=== PATIENT | male | born 1945 | race Caucasian/White ===

== ENCOUNTER → 2023-09-09 16:35 | Outpatient (REF) | payer MEDICARE, OTHER, SELFPAY | LOC: MRI 3T 16:35 | PROVIDERS: ATTENDING PHYSICIAN Internal Medicine Endocrinology, Diabetes & Metabolism; FAMILY PHYSICIAN Physician Assistant Medical | DX: E22.1 Hyperprolactinemia (principal) | CPT/HCPCS: 70553; A9575 ==

== ENCOUNTER → 2023-09-22 06:43 | Outpatient (REF) | payer MEDICARE, OTHER, SELFPAY ==
[2023-09-22 07:40] LABS: % Basophils 0.8 % (0-2); % Eosinophils 2.7 % (0-6); % Immature Granulocytes 0.2 % (0-0.5); % Lymphocytes 25.2 % (20.5-51.1); % Monocytes 12.5 % (1.7-9.3); % Neutrophils 58.6 % (42.2-75.2); Absolute Eosinophils 0.1 10^3/uL (0-0.7); Absolute Lymphocytes 1.3 10^3/uL (1.2-3.4); Absolute Monocytes 0.7 10^3/uL (0.1-0.6); Absolute Neutrophils 3.1 10^3/uL (1.4-6.5); Hematocrit 39.7 % (39.0-52.0); Hemoglobin 14.1 g/dL (13.0-18.0); Mean Corp Hgb Conc. 35.5 g/dL (33.0-37.0); Mean Corpuscular Hgb 32.6 pg (27.0-31.0); Mean Corpuscular Volume 91.7 fL (80.0-94.0); Mean Platelet Volume 9.7 fL (7.4-10.4); Nucleated Red Blood Cells % 0 % (-); Platelet Count 246 10^3/uL (130-400); Red Blood Cell Count 4.33 10^6/uL (4.70-6.10); Red Cell Dist. Width 12.1 % (11.5-14.5); White Blood Cell Count 5.3 10^3/uL (4.8-10.8)
== END ==
LOC: REG 06:43
PROVIDERS: ATTENDING PHYSICIAN Internal Medicine Hematology & Oncology; FAMILY PHYSICIAN Physician Assistant Medical
DX: D72.810 Lymphocytopenia (principal)
CPT/HCPCS: 36415; 85025

== ENCOUNTER → 2023-10-14 10:28 | Outpatient (REF) | payer MEDICARE, OTHER, SELFPAY | LOC: RAD 10:28 | PROVIDERS: ATTENDING PHYSICIAN Physician Assistant | DX: M79.604 Pain in right leg (principal) | CPT/HCPCS: 93971 ==

== ENCOUNTER 2023-10-20 19:50 | Inpatient (IN) | payer MEDICARE, OTHER, SELFPAY ==
[2023-10-20 14:42] VITALS: BP 123/79
--- NOTE | 2023-10-20 15:04 | ED.PDOC.TRB ---
ED Provider Triage
-
A medical screening examination has been initiated by a qualified medical provider. Based on the assessment performed at this time, it has been determined that an emergent medical condition may exist and the patient has been informed that further
medical evaluation and possible additional diagnostic testing may be needed.
HPI: This is a medical evaluation conducted in person to initiate diagnostic evaluation and provide initial therapeutics. Please see further documentation by the treating clinician.
GENERAL: Alert , in no apparent distress
EYE: No visual abnormalities.
NECK: Trachea midline
ENT: No visible abnormalities.
LUNGS: No acute respiratory distress
NEUROLOGICAL: Alert and oriented
SKIN: Patient has a very large pointing abscess measuring approximately 8 x 8 cm to the right medial lower leg with a very extensive cellulitis streaking up into his thigh posteriorly, there is also diffuse edema of the right lower extremity
MUSCULOSKELETAL: Moving extremities normally
PSYCH: Normal and appropriate interaction.
77-year-old male who reports only medical history is blood pressure and no history of diabetes presents with a very large abscess/cellulitis to his right lower extremity despite oral antibiotics for the last week. He says that it initially he was
cutting down wood and the wood bruised his lower extremity but did not break the skin and he had a hematoma there were slight bruise which got much worse. He has not had any fevers or chills. He has been on Keflex and the pain got better but he
has extensive worsening of his redness and the patient was sent here after being evaluated by his family doctor for possible admission. On exam patient has significant cellulitis and an abscess
He is not having pain out of proportion but given the worsening collection there I felt like it was beneficial to obtain a CT with IV contrast. He will likely need admission.
[2023-10-20 15:15] LABS: % Basophils 0.7 % (0-2); % Lymphocytes 13.7 % (20.5-51.1); % Monocytes 10.8 % (1.7-9.3); % Neutrophils 70.8 % (42.2-75.2); Absolute Basophils 0.1 10^3/uL (0-0.2); Absolute Eosinophils 0.2 10^3/uL (0-0.7); Absolute Immature Granulocytes 0.2 10^3/uL (0-0.05); Absolute Lymphocytes 1.5 10^3/uL (1.2-3.4); Absolute Monocytes 1.2 10^3/uL (0.1-0.6); Absolute Neutrophils 7.7 10^3/uL (1.4-6.5); Hematocrit 37.4 % (39.0-52.0); Hemoglobin 13.4 g/dL (13.0-18.0); Mean Corp Hgb Conc. 35.8 g/dL (33.0-37.0); Mean Corpuscular Hgb 31.9 pg (27.0-31.0); Mean Platelet Volume 8.7 fL (7.4-10.4); Nucleated Red Blood Cells % 0 % (-); Platelet Count 411 10^3/uL (130-400); Red Cell Dist. Width 12.3 % (11.5-14.5); White Blood Cell Count 10.9 10^3/uL (4.8-10.8)
[2023-10-20 15:23] LABS: Lactic Acid 1.5 mmol/L (0.7-2.0)
[2023-10-20 15:24] LABS: ALT (SGPT) 25 U/L (0-50); AST (SGOT) 28 U/L (17-59); Albumin 3.9 g/dl (3.5-5.0); Alkaline Phosphatase 81 U/L (38-126); Blood Urea Nitrogen 19 mg/dl (9-20); Calcium 9.3 mg/dl (8.4-10.2); Carbon Dioxide 25 mmol/L (22-30); Chloride 102 mmol/L (98-107); Glucose 101 mg/dl (70-99); Potassium 4.4 mmol/L (3.5-5.1); Sodium 138 mmol/L (135-145); Total Bilirubin 0.5 mg/dl (0.2-1.3); Total Protein 6.7 g/dl (6.3-8.2); eGFR > 60.00
[2023-10-20 17:41] VITALS: BMI 30.6
--- NOTE | 2023-10-20 17:47 | ED.GENMED ---
History of Present Illness
<TOBY Fajardo - Last Filed: 10/20/23 20:18>
General
Chief Complaint: Skin Problem
Source: patient
Exam Limitations: none
Time Seen by Provider: 10/20/23 17:29
Nursing documentation reviewed up to this point in time: agreed with
History of Present Illness
History of Present Illness:
77 yr old male presents to the ER for evaluation patient is a 77-year-old male who started with a wound to his right lower leg a week ago which looked infected. He completed 1 week of Keflex 500 mg every 6 hours with worsening of symptoms now his
leg is swollen increased redness and has a thickened blister did drain at one point not draining now. He denies any fevers he denies any pain. He does report he had an outpatient ultrasound which was negative for DVT. He denies any fever chills.
Past History
<TOBY Fajardo - Last Filed: 10/20/23 20:18>
Past History
ED Past Medical History: HTN and Other (vertigo)
ED Past Surgical History: Cholecystectomy, Orthopedic and Other (hernia)
Social History
Tobacco: Non-smoker
Alcohol: None
Personal:
Living: with family
Employment: Employed
Review of Systems
<TOBY Fajardo - Last Filed: 10/20/23 20:18>
Review of Systems
Allergies reviewed?: Yes
Other source history: family
All Other Systems: ROS reviewed and negative except as documented in HPI and ROS
Constitutional: Reports no symptoms; Denies fever, fatigue or chills
EENT: Reports no symptoms
Respiratory: Reports no symptoms
Cardiac: Reports no symptoms
ABD/GI: Reports no symptoms
Musculoskeletal: Reports other (right leg swelling redness blister )
Skin: Reports other (See above)
Neurological: Reports no symptoms
Psychiatric: Reports no symptoms
Phy Exam
<TOBY Fajardo - Last Filed: 10/20/23 20:18>
General Physical Exam
General Presentation: no apparent distress
Cardiovascular Exam
Cardiovascular Exam: regular rate/rhythm, no murmur and normal peripheral pulses
Pulmonary Exam
Pulmonary Exam: lungs clear and no respiratory distress
Neurological Exam
Neurological Exam: alert and oriented x3
Musculoskeletal Exam
Musculoskeletal Exam: other (Right lower leg with swelling ; circumferential erythema thickened appearing blister + pulses )
Skin Exam
Skin Exam: normal color and warm/dry
Psychiatric Exam
Psychiatric Exam: normal mood/affect
Course
<TOBY Fajardo - Last Filed: 10/20/23 20:18>
Orders/Labs/Results
Orders:
Orders
10/20/23 14:58
Complete Blood Count/With Diff Urgent
Comprehensive Metabolic Panel Urgent
Lactic Acid Q4H
Comment: CANCEL 2nd LACTIC ACID IF 1st LACTIC ACID IS LESS THAN 2
Blood Culture Urgent
GLEN Source: Blood/Venous
Specimen Description:
10/20/23 Dinner
Regular
At Your Request: Full Participation
10/20/23 18:11
Vancomycin 1 Gram/200 ml [Vancocin] 1 gram in 200 ml IV NOW
10/20/23 18:20
Lower Ext Right w Contrast CT [CT Lower Ext W/iv Cont Rt] Urgent
Comment:
Reason For Exam: rle cellulitis//abscess
10/20/23 18:35
Piperacillin/Tazo 4.5 Gram [Zosyn] 4.5 gram in 100 ml IV NOW
10/20/23 18:54
Admit/Transfer Patient As Directed
Co-Sign Provider:
Level of Care: Inpatient admission
Assign to:: Medical/Surgical
Physician / Group: lisa
Diagnosis: cellulitis with abscess
Reason for Hospitalization: cellulitis with abscess
Expected length of stay greater than two midnights?: Yes
ELOS- Estimated Length of Stay in days: 2
I certify the patient meets the requirements for IP care: Yes
Code Status As Directed
Resuscitation Status: Full Code
PRN Pain Medication Management As Directed
May give lesser potent ordered pain med per pt: Yes
preference::
Protocol:: Medication orders for pain may be administered in a
manner that supports deferring to patient preference
when the pt is:
- Requesting an ordered lesser potent pain medication.
Least to most potent pain medications are defined
as: acetaminophen < NSAID < tramadol < opioids
(morphine, oxycodone, hydromorphone).
- Requesting a lesser dose of the same medication IF
ORDERED.
- Requesting a less intrusive route of administration
if both routes are prescribed by the provider (PO <
IV).
10/20/23 20:03
Heparin 5,000 units SC Q12
Triamcinolone Cream [Aristocort/Triamcinolone 0.1% Cream] 1 applic TOPICAL BIDPRN PRN
VANCOMYCIN Pharmacy to Dose [VANCOCIN Pharmacy to Dose] 1 each Pharmacy To Prepare [Call Pharmacy To Prepare] 0 ml IV PER PROTOCOL
10/20/23 20:03
Activity As Directed
Activity Level: As Tolerated
Vital Signs As Directed
Frequency: Per unit guidelines
DX Deep Vein Thrombosis Video Routine
10/20/23 22:00
Atorvastatin [Lipitor] 40 mg PO HS
Latanoprost [Xalatan Ophthalmic Solution] See Dose Instructions BOTH EYES HS
10/21/23 06:00
Complete Blood Count/With Diff IN AM
Comprehensive Metabolic Panel IN AM
10/21/23 08:00
Multivitamin [Theragran] 1 tablet PO DAILY
cabergoline 1 mg PO TU
10/21/23 18:00
Aspirin Chewable [Low Strength Aspirin] 81 mg PO QPM
10/24/23 08:00
cabergoline 1.5 mg PO FR
Abnormal Lab Results
10/20/23
14:58
WBC 10.9 H 10^3/uL
(4.8-10.8)
RBC 4.20 L 10^6/uL
(4.70-6.10)
Hct 37.4 L %
(39.0-52.0)
MCH 31.9 H pg
(27.0-31.0)
Plt Count 411 H 10^3/uL
(130-400)
Abs Immat Gran (auto) 0.2 H 10^3/uL
(0-0.05)
Absolute Neuts (auto) 7.7 H 10^3/uL
(1.4-6.5)
Absolute Monos (auto) 1.2 H 10^3/uL
(0.1-0.6)
Immature Gran % 2.0 H %
(0-0.5)
Lymphocytes % 13.7 L %
(20.5-51.1)
Monocytes % 10.8 H %
(1.7-9.3)
Glucose 101 H mg/dl
(70-99)
10/20/23 14:58
10/20/23 14:58
Vital Signs
Initial and Last Documented VS:
Initial Vital Signs
Temp Pulse Resp BP Pulse Ox
97.8 F 82 16 123/79 98
10/20/23 14:42 10/20/23 14:42 10/20/23 14:42 10/20/23 14:42 10/20/23 14:42
Last Documented Vital Signs
Temp Pulse Resp BP Pulse Ox
97.8 F 82 16 162/100 95
10/20/23 14:42 10/20/23 14:42 10/20/23 14:42 10/20/23 18:49 10/20/23 18:50
Project Officer consulted with Physician
Project Officer consulted with physician?: Yes
Name of Physician Consulted: Dr Fernando
<Tequila Fernando MD - Last Filed: 10/20/23 18:39>
Orders/Labs/Results
Orders:
Orders
10/20/23 14:58
Complete Blood Count/With Diff Urgent
Comprehensive Metabolic Panel Urgent
Lactic Acid Q4H
Comment: CANCEL 2nd LACTIC ACID IF 1st LACTIC ACID IS LESS THAN 2
Blood Culture Urgent
GLEN Source: Blood/Venous
Specimen Description:
10/20/23 Dinner
Regular
At Your Request: Full Participation
10/20/23 18:11
Vancomycin 1 Gram/200 ml [Vancocin] 1 gram in 200 ml IV NOW
10/20/23 18:20
Lower Ext Right w Contrast CT [CT Lower Ext W/iv Cont Rt] Urgent
Comment:
Reason For Exam: rle cellulitis//abscess
10/20/23 18:35
Piperacillin/Tazo 4.5 Gram [Zosyn] 4.5 gram in 100 ml IV NOW
10/20/23 18:54
Admit/Transfer Patient As Directed
Co-Sign Provider:
Level of Care: Inpatient admission
Assign to:: Medical/Surgical
Physician / Group: lisa
Diagnosis: cellulitis with abscess
Reason for Hospitalization: cellulitis with abscess
Expected length of stay greater than two midnights?: Yes
ELOS- Estimated Length of Stay in days: 2
I certify the patient meets the requirements for IP care: Yes
Code Status As Directed
Resuscitation Status: Full Code
PRN Pain Medication Management As Directed
May give lesser potent ordered pain med per pt: Yes
preference::
Protocol:: Medication orders for pain may be administered in a
manner that supports deferring to patient preference
when the pt is:
- Requesting an ordered lesser potent pain medication.
Least to most potent pain medications are defined
as: acetaminophen < NSAID < tramadol < opioids
(morphine, oxycodone, hydromorphone).
- Requesting a lesser dose of the same medication IF
ORDERED.
- Requesting a less intrusive route of administration
if both routes are prescribed by the provider (PO <
IV).
10/20/23 20:03
Heparin 5,000 units SC Q12
Triamcinolone Cream [Aristocort/Triamcinolone 0.1% Cream] 1 applic TOPICAL BIDPRN PRN
VANCOMYCIN Pharmacy to Dose [VANCOCIN Pharmacy to Dose] 1 each Pharmacy To Prepare [Call Pharmacy To Prepare] 0 ml IV PER PROTOCOL
10/20/23 20:03
Activity As Directed
Activity Level: As Tolerated
Vital Signs As Directed
Frequency: Per unit guidelines
DX Deep Vein Thrombosis Video Routine
10/20/23 22:00
Atorvastatin [Lipitor] 40 mg PO HS
Latanoprost [Xalatan Ophthalmic Solution] See Dose Instructions BOTH EYES HS
10/21/23 06:00
Complete Blood Count/With Diff IN AM
Comprehensive Metabolic Panel IN AM
10/21/23 08:00
Multivitamin [Theragran] 1 tablet PO DAILY
cabergoline 1 mg PO TU
10/21/23 18:00
Aspirin Chewable [Low Strength Aspirin] 81 mg PO QPM
10/24/23 08:00
cabergoline 1.5 mg PO FR
Abnormal Lab Results
10/20/23
14:58
WBC 10.9 H 10^3/uL
(4.8-10.8)
RBC 4.20 L 10^6/uL
(4.70-6.10)
Hct 37.4 L %
(39.0-52.0)
MCH 31.9 H pg
(27.0-31.0)
Plt Count 411 H 10^3/uL
(130-400)
Abs Immat Gran (auto) 0.2 H 10^3/uL
(0-0.05)
Absolute Neuts (auto) 7.7 H 10^3/uL
(1.4-6.5)
Absolute Monos (auto) 1.2 H 10^3/uL
(0.1-0.6)
Immature Gran % 2.0 H %
(0-0.5)
Lymphocytes % 13.7 L %
(20.5-51.1)
Monocytes % 10.8 H %
(1.7-9.3)
Glucose 101 H mg/dl
(70-99)
10/20/23 14:58
10/20/23 14:58
Vital Signs
Initial and Last Documented VS:
Initial Vital Signs
Temp Pulse Resp BP Pulse Ox
97.8 F 82 16 123/79 98
10/20/23 14:42 10/20/23 14:42 10/20/23 14:42 10/20/23 14:42 10/20/23 14:42
Last Documented Vital Signs
Temp Pulse Resp BP Pulse Ox
97.8 F 82 16 162/100 95
10/20/23 14:42 10/20/23 14:42 10/20/23 14:42 10/20/23 18:49 10/20/23 18:50
<TOBY Fajardo - Last Filed: 10/20/23 20:18>
MDM/Problems Addressed
Differential Diagnosis Includes:
Not limited to cellulitis, abscess failed outpatient treatment
MDM/Problems Addressed:
Patient is a 77 show male who presents for cellulitis of the right leg with thickened blister. He initially had a wound to this area was treated with antibiotics for the past 1 week, Keflex every 6 hours without relief. Right lower extremity is
very red circumferential erythema with swelling he did have an outpatient ultrasound which was negative for DVT. He has a thickened blister. He has strong pulses. He denies any pain denies any fevers white count 10.9. Will admit for failure of
outpatient antibiotics will require antibiotics intravenously CAT scan further ordered to further evaluate this thickened area of blister. Patient adm to hospital service
2017: CAT scan shows extensive skin thickening and subcutaneous edema and stranding throughout the lower extremity with ill-defined fluid along the dorsal lateral aspect of the findings likely represent superficial infectious process there is a more
focal focus of fluid possibly a phlegmon's collection developing abscess within the medial soft tissues at the level of the lower calf.
<TOBY Fajardo - Last Filed: 10/20/23 20:18>
*Pulse Oximetry
Patient hypoxic: no
*Critical Care Note
Total Time (30-74mins, 75-104mins- exclusive of procedures): Not Applicable
ED Attending Note
<TOBY Fajardo - Last Filed: 10/20/23 20:18>
-
Portions of this chart may have been created with voice recognition software.� Occasional wrong word or��sound alike� substitutions may have occurred due to the inherent limitations of voice recognition software.
<Tequila Fernando MD - Last Filed: 10/20/23 18:39>
ED Attending Note
Patient seen and examined by attending physician: Yes
I performed the substantive portion of visit, reviewed & personally made and approve the management plan that is documented in note by myself or NESTOR.: Yes
ED Attending Note:
77-year-old male who cut his leg on a piece of wood about a week or so ago, saw his doctor and was started on antibiotics, Keflex, for which she has been taking for a week. He said initially had discomfort there but it went away once he started the
antibiotics. In follow-up today with his doctor he was noted to be worse which prompted his visit here. Patient is not a diabetic or immunosuppressed. He denies fever, chills, numbness, tingling. On exam, patient is nontoxic and pleasant,
watching TV in no distress. He is noted to have significant right lower extremity edema from the foot extending to the lower thigh associated with erythema, warmth, and a circular open area in the medial aspect of the right calf. Pulses are
normal. Full range of motion. Erythema faintly extends to the medial and posterior aspect of the mid thigh, no perineal involvement, no crepitus, no Vito's. We will monitor wound closely, labs noted, lactic within normal limits, no pain, no
fever, making necrotizing fasciitis less likely. Antibiotics initiated, CT pending.
Discharge Plan
Departure
Patient Disposition: Admit
Date of Disposition: 10/20/23
Time of Disposition: 18:14
Admit to: Med/Surg
Admit to doctor: hospitalist
Presentation/result/management discussed w/ accepting MD/DO: Hospitalist
Patient with high blood pressure during this ER visit?: No
Condition: Fair
Covid-19: Not Applicable
Discharge Problem:
cellulitis right leg
Interventions
Interventions:
*Risk Screen - Suicide Last Done: 10/20/23 17:38
*General Assessment Last Done: 10/20/23 17:38
*Neglect/Abuse Screening Last Done: 10/20/23 17:38
*ED COVID-19 Vaccine History Last Done: 10/20/23 17:38
*Nursing Disposition Last Done: 10/20/23 20:03
ED-Skin Assessment Last Done: 10/20/23 17:39
Discharge Date and Time
Discharge Date/Time: 10/20/23 20:04
[2023-10-20 17:50] VITALS: BP 149/90
[2023-10-20 18:00] VITALS: BP 153/89
[2023-10-20] MEDS: VANCOCIN 200 IV ×2 (18:30→21:32)
[2023-10-20 18:49] VITALS: BP 162/100
--- NOTE | 2023-10-20 18:55 | HPS.HSE ---
Family Physician
-
Family Physician: JANET Mccarty
Chief Complaint
-
skin redness and swelling
History of Present Illness
77-year-old male with past medical history of hypertension, CVA, vertigo, prolactinoma, hyperlipidemia, presenting with wound of right lower leg.
3 weeks ago he was doing yard work and had an injury with a tree branch falling on his leg. He denies any sharp injury or penetration of a branch and it was a blunt trauma.
He developed redness and swelling of his right lower leg a week ago he completed 1 week of Keflex today with worsening symptoms and now his leg is swollen, red and has a thickened blister which did have some drainage previously. He denies any
fevers. He denies any chills. He had outpatient ultrasound which was negative for DVT 6 days ago but showed a fluid collection.
He denies smoking or alcohol use.
Medical History
Past Medical History
Past Medical History: Reports Other ( hypertension, CVA, vertigo, prolactinoma, hyperlipidemia)
Past Surgical History: Reports None
Social History
Tobacco: Non-smoker
Alcohol: None
Drug: None
Family History
Family History: Not pertinent
Allergies / Home Medications
Allergies reflects when Allergies were last updated in [facility].
Home Medications with original date entered in [facility]
Allergy/Medication List:
Allergies
Allergy/AdvReac Type Severity Reaction Status Date / Time
No Known Allergies Allergy Verified 10/20/23 14:43
Home Medications
cabergoline 0.5 mg tablet 1 mg PO TU 10/13/19
amlodipine 10 mg-benazepril 40 mg capsule 1 cap PO DAILY 10/20/23
aspirin 81 mg chewable tablet 81 mg PO QPM 10/20/23
atorvastatin 40 mg tablet 40 mg PO HS 10/20/23
cabergoline 0.5 mg tablet 1.5 mg PO FR 10/20/23
cephalexin 500 mg capsule 500 mg PO Q6H 10/20/23
latanoprost 0.005 % eye drops 1 drp BOTH EYES HS 10/20/23
therapeutic multivitamin 1 tab PO DAILY 10/20/23
triamcinolone acetonide 0.1 % topical cream 1 applic topical BIDPRN PRN eczema 10/20/23
Review of Systems
-
History Source: Patient
A 12 point ROS was completed and negative except as noted: Yes
Constitutional: Reports No Symptoms
EENT: Reports No Symptoms
Respiratory: Reports No Symptoms
Cardiac: Reports No Symptoms
Abdomen/GI: Reports No Symptoms
: Reports No Symptoms
Musculoskeletal: Reports No Symptoms
Skin: Reports See HPI
Neurological: Reports No Symptoms
Endocrine: Reports No Symptoms
Hematologic/Lymphatic: Reports No Symptoms
Psych: Reports No Symptoms
Physical Exam
Vital Signs
Vital Signs
Temp Pulse Resp BP Pulse Ox
97.8 F 82 16 162/100 95
10/20/23 14:42 10/20/23 14:42 10/20/23 14:42 10/20/23 18:49 10/20/23 18:50
Physical Exam
General: Well Developed, Well Nourished and No Apparent Distress
HEENT: NormoCephalic, Moist mucous membranes and Atraumatic
Respiratory: Clear
Cardiac: S1/S2 and Regular Rhythm; No Murmur or Rub
GI: Soft, Non Tender, Non Distended and Normal Bowel Sounds; No Organomegaly
Rectal: Deferred by Provider
Musculoskeletal: No Clubbing, No Cyanosis and No Edema
Skin: Other (right leg erythema, swelling, indurated area left lateral leg ); No Rash
Neuro: Nonfocal/grossly intact
Laboratory Results
-
10/20/23 14:58
10/20/23 14:58
Laboratory Results
Lactic Acid Cancelled 10/20/23 15:00
Total Bilirubin 0.5 mg/dl (0.2-1.3) 10/20/23 14:58
AST 28 U/L (17-59) 10/20/23 14:58
ALT 25 U/L (0-50) 10/20/23 14:58
Alkaline Phosphatase 81 U/L (38-126) 10/20/23 14:58
Data Reviewed
-
Lab Data: Labs Reviewed by me
Old Records: Reviewed
Impression/Plan
-
IMPRESSION:
PLAN:
# Right lower extremity cellulitis with abscess
-Venous ultrasound from 6 days ago shows 4.7 cm hematoma/seroma likely abscess
-CT of right lower extremity pending
-Blood culture pending
-Vancomycin, Zosyn given, continue vancomycin
-General Surgery consulted for drainage
Essential hypertension
-Continue amlodipine/benazepril
History of CVA
-Continue aspirin
History of prolactinoma
-Continue cabergoline
History of vertigo
Hyperlipidemia
-Continue statin
DNR/DNI
DVT prophylaxis-heparin
Regular diet
[2023-10-20] MEDS: ZOSYN 100 IV (19:41)
[2023-10-20 20:10] VITALS: BP 144/78
[2023-10-20 20:18] VITALS: BMI 29.7
--- NOTE | 2023-10-20 20:55 | PHA.VAN.IN ---
Assessment
- Assessment
Renal Function: Appears similar to baseline (03/13/23 SCR: 0.9)
Concomitant Antimicrobials: NONE
- Previous Dosing Experience
Previous Regimen: NONE
AUC Dosing Plan
- Dosing Variables
Dosing Weight (kg): 88.4
Dosing CrCl (ml/min): 61
Vd coefficient (L/kg): 0.7
- Empiric Dosing
Initial / Loading Dose: 2GM TOTAL
Maintenance Regimen: 1750MG IV Q24H
Estimated AUC (mcg*h/mL): 542
Estimated Peak (mcg*h/mL): 38.6
Estimated Trough (mcg/ml): 11.5
Estimated Half Life (H): 12.6
Pharmacokinetics Vancomycin I
- -
Patient Age: 77
Patient Sex: Male
Vancomycin Day #: 1
Indication: Skin And Soft Tissue (RLE CELLULITIS/ABSCESS)
Requesting Provider: ROMEO
Height / Weight:
Height 5 ft 8 in
Actual Weight 88.451 kg
Pertinent Past Medical History: FAILED OUTPT TX WITH KEFLEX
- Vital Signs / Lab Results
Temp Pulse Resp BP Pulse Ox
97.8 F 82 16 162/100 95
10/20/23 14:42 10/20/23 14:42 10/20/23 14:42 10/20/23 18:49 10/20/23 18:50
Lab Results - Hematology
10/20/23
14:58
WBC 10.9 H
Lab Results - Chemistry
10/20/23
14:58
BUN 19
Creatinine 1.0
Albumin 3.9
10/20/23 10/20/23
14:58 15:00
Lactic Acid 1.5 Cancelled
[2023-10-20] MEDS: XALATAN OPHTHALMIC SOLUTION 1 DROP BOTH EYES (21:35)
[2023-10-20] MEDS: HEPARIN 5000 UNITS SC (21:37)
[2023-10-20] MEDS: LIPITOR 40 MG PO (21:37)
[2023-10-20 22:57] VITALS: BP 139/78
[2023-10-21] MEDS: VANCOCIN 535 MG IV (06:13)
[2023-10-21 07:18] LABS: % Basophils 0.9 % (0-2); % Eosinophils 2.4 % (0-6); % Immature Granulocytes 1.8 % (0-0.5); % Lymphocytes 20.1 % (20.5-51.1); % Monocytes 10.4 % (1.7-9.3); % Neutrophils 64.4 % (42.2-75.2); Absolute Basophils 0.1 10^3/uL (0-0.2); Absolute Eosinophils 0.2 10^3/uL (0-0.7); Absolute Immature Granulocytes 0.1 10^3/uL (0-0.05); Absolute Lymphocytes 1.6 10^3/uL (1.2-3.4); Absolute Monocytes 0.8 10^3/uL (0.1-0.6); Hematocrit 34.7 % (39.0-52.0); Hemoglobin 12.4 g/dL (13.0-18.0); Mean Corp Hgb Conc. 35.7 g/dL (33.0-37.0); Mean Corpuscular Hgb 31.8 pg (27.0-31.0); Mean Platelet Volume 8.7 fL (7.4-10.4); Nucleated Red Blood Cells % 0 % (-); Platelet Count 363 10^3/uL (130-400); Red Cell Dist. Width 12.4 % (11.5-14.5); White Blood Cell Count 7.8 10^3/uL (4.8-10.8)
[2023-10-21 07:35] VITALS: BP 142/82
--- NOTE | 2023-10-21 07:41 | PHA.VAN.FU ---
Vancomycin Assessment / Plan
- Assessment
Renal Function: Stable
WBC's are: WNL
In the past 24 hrs, patient has been: Afebrile
- Dosing Plan
Adjust Regimen to: Vanc 750mg Q12H starting 10/21 06
New Regimen Predicts: AUC (455), Peak (25.2), Trough (13.8)
Dosing Comments: patient received 1750mg this morning plus divided 2g load
- Monitoring Plan
No level(s) ordered at this time: consider levels in next few days
- Follow Up
Pharmacy will continue to follow.
Vancomycin Follow UP
- -
Patient Age: 77
Patient Sex: Male
Vancomycin Day #: 2
Indication: Skin And Soft Tissue
Requesting Provider: Dr. Patricia
Pertinent Antimicrobial Allergies:
NKDA
Height / Weight:
Height 5 ft 8 in
Actual Weight 88.451 kg
Pertinent Past Medical History: BMI ~30
- Vital Signs / Lab Results
Temp Pulse Resp BP Pulse Ox
98.1 F 66 20 139/78 95
10/20/23 22:57 10/20/23 22:57 10/20/23 22:57 10/20/23 22:57 10/21/23 01:16
Lab Results - Hematology
10/20/23 10/21/23
14:58 06:24
WBC 10.9 H 7.8
Lab Results - Chemistry
10/20/23
14:58
BUN 19
Creatinine 1.0
Albumin 3.9
10/20/23 10/20/23
14:58 15:00
Lactic Acid 1.5 Cancelled
[2023-10-21 07:42] LABS: ALT (SGPT) 22 U/L (0-50); AST (SGOT) 25 U/L (17-59); Albumin 3.3 g/dl (3.5-5.0); Alkaline Phosphatase 77 U/L (38-126); Blood Urea Nitrogen 16 mg/dl (9-20); Calcium 8.7 mg/dl (8.4-10.2); Carbon Dioxide 25 mmol/L (22-30); Chloride 103 mmol/L (98-107); Estimated Creatinine Clearance 61 ml/min; Glucose 88 mg/dl (70-99); Potassium 4.6 mmol/L (3.5-5.1); Sodium 137 mmol/L (135-145); Total Bilirubin 0.9 mg/dl (0.2-1.3); eGFR > 60.00
[2023-10-21] MEDS: HEPARIN 5000 UNITS SC ×2 (08:33→22:01)
[2023-10-21] MEDS: THERAGRAN 1 TABLET PO (08:33)
--- NOTE | 2023-10-21 10:05 | CON.ID ---
Consultation
-
Date/Time Consultation Requested: October 21, 2023 0804
Date/Time Consultation Performed: October 21, 2023 1000
Requesting Provider: Dr. Navi Garza
Performing Provider: Dr. June Whitney
Reason for Consultation: RLE abscess
Chief Complaint / Past History
Chief Complaint
Right leg swelling
History of Present Illness
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 He reports approximate 3 weeks ago, he was cutting wood for his client when a piece of the wood
flew and struck his right leg through his pants. He did not notice any wounds at the time. He did not clean his leg right away. Over the course of the next 2 weeks, he developed right lower leg swelling with erythema and a lump. October 13
outpatient venous duplex showed 4.7 x 2.1 x 4.1 cm fluid collection. He was placed on cephalexin without improvement. His leg continued to be very edematous, red, and increasing size of the induration with blister formation draining serous fluid.
He finally came to the ER. CT LE - superficial fluid collection. He received vancomycin and Zosyn. He is currently on vancomycin monotherapy. No fevers or chills. He reports since being in a hospital, the edema has slightly improved.
Past History
Additional Past Medical History:
Hypertension
Dyslipidemia
CVA
Prolactinoma
vertigo
Allergy History:
No Known Allergies Allergy (Verified 10/20/23 14:43)
Medications Reviewed: Yes
Current Antibiotics:
Vancomycin D2
s/p Zosyn x 1
Social History
Tobacco: Non-Smoker
Alcohol: None
Drug: None
Employment: Employed ([employer])
Family History
Family History: Not Pertinent
Review of Systems
Review of Systems
General: Negative Fever, Chills or Change in Appetite
HEENT: Negative Sinus Problems or Headache
Respiratory: Negative Dyspnea or Cough
Gasteroenterology: Other (no diarrhea); Negative Nausea or Vomiting
Genital / Urological: Negative Dysuria or Flank Pain
Endocrine: Negative Weakness
Neurological: Negative Headache
All systems: All other systems were reviewed and were negative
Vital Signs
Temp Pulse Resp BP Pulse Ox
98.0 F 64 16 142/82 95
10/21/23 07:35 10/21/23 07:35 10/21/23 07:35 10/21/23 07:35 10/21/23 07:35
Physical Exam
Physical Exam
Constitutional: No Acute Distress, Comfortable and Non-toxic
Eyes: No Conjunctival Hemorrhage
Cardiovascular: Regular Rate and S1/S2
Pulmonary: Clear
Gastrointestinal: Soft, Non Tender, Non Distended and Normal Bowel Sounds
Extremities: Other (RLE: 3+ edema, large abscess over distal alcantar with dried exudate,+ surrounding erythema extending to foot and up leg, + warmth)
Neurological: AO x 3
Lab / Diagnostic Study Results
10/21/23 06:24
10/21/23 06:24
Abs Immat Gran (auto) 0.1 10^3/uL (0-0.05) H 10/21/23 06:24
Absolute Neuts (auto) 5.0 10^3/uL (1.4-6.5) 10/21/23 06:24
Absolute Lymphs (auto) 1.6 10^3/uL (1.2-3.4) 10/21/23 06:24
Absolute Monos (auto) 0.8 10^3/uL (0.1-0.6) H 10/21/23 06:24
Absolute Basos (auto) 0.1 10^3/uL (0-0.2) 10/21/23 06:24
Immature Gran % 1.8 % (0-0.5) H 10/21/23 06:24
Neutrophils % 64.4 % (42.2-75.2) 10/21/23 06:24
Lymphocytes % 20.1 % (20.5-51.1) L 10/21/23 06:24
Monocytes % 10.4 % (1.7-9.3) H 10/21/23 06:24
Eosinophils % 2.4 % (0-6) 10/21/23 06:24
Basophils % 0.9 % (0-2) 10/21/23 06:24
Lactic Acid Cancelled 10/20/23 15:00
Microbiology Results
Micro:
10/21/23 06:19 MRSA Screen - Pending
Nose
10/20/23 14:58 Blood Culture - Pending
Blood/Venous
10/20/23 CT a/p: There is extensive skin thickening and subcutaneous edema/stranding throughout the lower extremity with ill-defined fluid along the dorsal lateral aspect of the foot. Findings likely represent superficial infectious process. There is
a 3.2 x 2.0 x 3.9 cm more focal focus of fluid, possibly a phlegmonous collection/developing abscess within the medial soft tissues at the level of the lower calf.
Assessment / Plan
# RLE large abscess, cellulitis due to blunt trauma from a piece of tree branch
- Appreciate surgery - for abscess I+D today.
Please send aerobic and anaerobic cultures.
- Suspect polymicrobial organisms including GNR.
Add IV cefepime, po metronidazole.
Continue Vancomycin.
Will de-escalate abx's when cx data available.
- Elevate RLE.
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
Hypertension
Dyslipidemia
CVA
Prolactinoma
vertigo
--- NOTE | 2023-10-21 11:14 | W.PN.HOSP.TC ---
Today's Communication/Plan
-
IV Vanco, cefepime and Flagyl
I&D per surgery
Monitor blood pressure
Follow-up on the culture data
Assessment / Plan
Assessment / Plan
# Right lower extremity cellulitis with abscess secondary to blunt force trauma
-Venous ultrasound from 6 days ago shows 4.7 cm hematoma/seroma likely abscess
-CT of right lower extremity noted.
-Blood culture in lab.
-Vancomycin continued. Infectious disease consulted and cefepime Flagyl added.
-General Surgery consulted with plan for bedside I&D later today.
Essential hypertension
-Continue amlodipine/benazepril
History of CVA
-Continue aspirin
History of prolactinoma
-Continue cabergoline
History of vertigo
Hyperlipidemia
-Continue statin
Full code
DVT prophylaxis-heparin
Regular diet
Discussed with general surgery
Anticipated Discharge: > 48 hours
Subjective/Interval History
-
Date of Service: October 21, 2023
States of improvement in edema
Objective Data
-
Labs:
Laboratory Results
10/21/23
06:24
WBC 7.8
Hgb 12.4 L
Hct 34.7 L
Plt Count 363
Sodium 137
Potassium 4.6
Chloride 103
Carbon Dioxide 25
BUN 16
Creatinine 1.0
Glucose 88
Calcium 8.7
Total Bilirubin 0.9
AST 25
ALT 22
Alkaline Phosphatase 77
Vital Signs:
Vital Signs
Temp Pulse Resp BP Pulse Ox
98.0 F 64 16 142/82 95
10/21/23 07:35 10/21/23 07:35 10/21/23 07:35 10/21/23 07:35 10/21/23 07:35
Physical Exam
-
General: Well Developed and No Apparent Distress
HEENT: Normocephalic, Atraumatic and Moist Mucous Membranes
Respiratory: Clear to Auscultation
Cardiac: Regular Rhythm and S1/S2; Negative Murmur, Rub or Gallop
GI: Soft, Nontender, Nondistended and Normal Bowel Sounds; Negative Organomegaly
Rectal: Deferred by Provider
Musculoskeletal: No Clubbing, No Cyanosis and No Edema
Skin: Rash (Right lower extremity erythematous with ulcerated lesion noted)
Neuro: Awake, AO x 3, No Motor Deficits and Nonfocal/Grossly Intact
Psych: Calm
Data Reviewed
-
Total Time Spent with Patient (in minutes): 57
--- NOTE | 2023-10-21 13:13 | CM ---
Reviewed the chart notes and spoke with the patient and his spouse at the bedside. The patient resides with his spouse in a one story home with one step to enter. The patient report no DME/VN/SNF in the past. The patient confirmed his pharmacy of
choice is the [facility]. CM continues to be available to patient/family and is monitoring medical plan for needs at discharge.
Plan: Discharge plans will depend on the patient's progress.
[2023-10-21] MEDS: FLAGYL 500 MG PO ×2 (13:31→22:01)
[2023-10-21] MEDS: MAXIPIME 1000 MG IV ×2 (13:32→22:04)
[2023-10-21] MEDS: STERILE WATER FOR INJECTION 10 ML IV ×2 (13:32→22:05)
[2023-10-21] MEDS: NON-FORMULARY ITEM 1 MG PO (13:34)
[2023-10-21] MEDS: NON-FORMULARY ITEM 1 UNIT PO (13:35)
--- NOTE | 2023-10-21 13:54 | CON.GS ---
Medical History
-
Chief Complaint: RLE pain and redness
History of Present Illness:
Patient is a 77 yo M with a PMH of HTN, HLD, CVA, and prolactinoma who presents with worsening RLE pain and swelling. Mr. Yi states that approximately 2 to 3 weeks ago he was doing some yard work when a large branch fell and struck his RLE. He
noted significant bruising at that time which slowly improved. Approximately 1 week ago he noted increased swelling, redness, and discomfort. He was evaluated by his PCP and prescribed a course of Keflex. He has noted little improvement with
antibiotic treatment. No fevers or chills. Pain overall is well-controlled. No neurologic symptoms such as weakness, numbness, or tingling. He has noted some mild serous drainage from the wound. He had an outpatient ultrasound which was
negative for a DVT but did demonstrate a fluid collection. He had a CT scan on admission which demonstrates edema of the surrounding tissues as well as a 3 x 4 cm fluid collection concerning for a possible abscess, no evidence of tracking air or
involvement of the bone. Denies any history of smoking or diabetes. No prior infections or history of MRSA.
Past Medical History
Past Medical History: CVA, HTN, Hypercholesterolemia and Other (Prolactinoma)
Past Surgical History: None
Social History
Tobacco: Non-Smoker
Alcohol: None
Drug: None
Family History
Family History: Reviewed & Not Pertinent
Allergies / Home Medications
Allergy/AdvReac Type Severity Reaction Status Date / Time
No Known Allergies Allergy Verified 10/20/23 14:43
�Medication �Instructions �Recorded �Confirmed �Type
cabergoline 0.5 mg tablet 1 mg PO TU cushings 10/13/19 10/20/23 History
amlodipine 10 mg-benazepril 40 mg 1 cap PO DAILY Blood Pressure 10/20/23 10/20/23 History
capsule
aspirin 81 mg chewable tablet 81 mg PO QPM Blood Clot 10/20/23 10/20/23 History
Prevention/Tx
atorvastatin 40 mg tablet 40 mg PO HS High Cholesterol 10/20/23 10/20/23 History
cabergoline 0.5 mg tablet 1.5 mg PO FR cushings 10/20/23 10/20/23 History
cephalexin 500 mg capsule 500 mg PO Q6H Infection 10/20/23 10/20/23 History
latanoprost 0.005 % eye drops 1 drp BOTH EYES HS Eye Condition 10/20/23 10/20/23 History
therapeutic multivitamin 1 tab PO DAILY Supplement 10/20/23 10/20/23 History
triamcinolone acetonide 0.1 % 1 applic topical BIDPRN PRN eczema 10/20/23 10/20/23 History
topical cream
Review of Systems
-
A 10 point review of systems was completed, and was negative except as per HPI.
Physical Exam
Vital Signs
Temp Pulse Resp BP Pulse Ox
98.0 F 64 16 142/82 95
10/21/23 07:35 10/21/23 07:35 10/21/23 07:35 10/21/23 07:35 10/21/23 07:35
10/20/23 10/21/23 10/22/23
06:59 06:59 06:59
Actual Weight 88.451 kg
Body Mass Index (BMI) 29.7
Lab Results
10/21/23 06:24
10/21/23 06:24
WBC 7.8 10^3/uL (4.8-10.8) 10/21/23 06:24
Hgb 12.4 g/dL (13.0-18.0) L 10/21/23 06:24
Hct 34.7 % (39.0-52.0) L 10/21/23 06:24
Plt Count 363 10^3/uL (130-400) 10/21/23 06:24
Abs Immat Gran (auto) 0.1 10^3/uL (0-0.05) H 10/21/23 06:24
Neutrophils % 64.4 % (42.2-75.2) 10/21/23 06:24
Physical Exam
General: Well Developed, Well Nourished and No Apparent Distress
HEENT: Normocephalic
Respiratory: Non Labored Respirations
Cardiac: Regular Rhythm
GI: Soft, Non Tender and Non Distended
Musculoskeletal: Other (RLE with +3 pitting edema, blanching erythema, area extends from ankle to mid calf, mild induration, focal area approximately 3 to 4 cm of swelling, fluctuance, mild serous drainage, overlying scabbing of the overlying skin,
palpable DP/PT)
Skin: Warm and Dry
Neuro: Nonfocal/Grossly Intact
Data Reviewed
-
CT Scan: Image Personally Visualized and interpreted and Report Reviewed by me
Labs: Labs Reviewed by me
Assessment / Plan
-
Patient is a 77 yo M p/w RLE cellulitis and abscess in the setting of a recent trauma
Clinical history was reviewed. Natural history and pathophysiology of soft tissue abscesses was reviewed. No concerning signs for a NSTI either clinically or radiographically. Given the size of the collection as well as persistent despite
outpatient antibiotic use recommend bedside incision and drainage. Patient agrees and willing to proceed.
Plan for incision and drainage of a RLE soft tissue abscess. The procedure itself, as well as the risks, benefits, and alternatives was discussed. Specifically, we discussed the risks of bleeding, persistent infection necessitating further
procedures, injury to surrounding structures (muscle, nerves), and prolonged wound healing were discussed. All questions answered. Verbal consent obtained.
-- Bedside incision and drainage of RLE abscess
-- Wound care: Okay to remove packing in 24 hours, replace daily and cover with dry gauze and tape
-- Antibiotics: Vancomycin, Flagyl, cefepime, ID consult noted, will obtain cultures during drainage
-- Pain control with Tylenol, Ibuprofen, narcotic as needed
[2023-10-21 15:43] VITALS: BP 115/75
[2023-10-21] MEDS: XYLOCAINE 1% 20 ML INJ (16:12)
--- NOTE | 2023-10-21 17:19 | W.PN.SURGUPD ---
Surgical Update
Surgical Update
Incision and drainage of RIGHT lower extremity abscess was performed at bedside. Verbal consent was obtained. Area was cleansed with alcohol. Field block was performed using 10 cc 1% Lidocaine. 1.5 cm incision was made overlying area of maximal
fluctuance. Fair amount of fluid and mild purulence was evacuated. Cultures were obtained. Cruciate incision was performed. Cavity was entered and measured approximately 3 x 3 cm. No significant loculations. Bloody output controlled with
pressure. Cavity was irrigated with saline. Cavity was packed with wet-to-dry gauze covered with dry gauze, Kerlix, and Garfield wrap. Patient tolerated procedure well.
[2023-10-21] MEDS: LOW STRENGTH ASPIRIN 81 MG PO (17:39)
[2023-10-21] MEDS: LIPITOR 40 MG PO (22:00)
[2023-10-21] MEDS: XALATAN OPHTHALMIC SOLUTION 1 DROP BOTH EYES (22:06)
[2023-10-21] MEDS: TYLENOL 650 MG PO (22:29)
[2023-10-21 23:11] VITALS: BP 122/63
[2023-10-22] MEDS: FLAGYL 500 MG PO ×3 (05:07→21:13)
[2023-10-22] MEDS: STERILE WATER FOR INJECTION 10 ML IV ×3 (06:28→22:54)
[2023-10-22] MEDS: VANCOCIN 150 IV (06:28)
[2023-10-22] MEDS: MAXIPIME 1000 MG IV ×3 (06:28→22:54)
[2023-10-22 07:35] VITALS: BP 137/81
[2023-10-22] MEDS: THERAGRAN 1 TABLET PO (08:38)
[2023-10-22] MEDS: HEPARIN 5000 UNITS SC ×2 (08:38→21:13)
[2023-10-22] MEDS: NON-FORMULARY ITEM 1 UNIT PO (08:39)
[2023-10-22 09:25] LABS: % Basophils 0.9 % (0-2); % Eosinophils 2.2 % (0-6); % Immature Granulocytes 1.4 % (0-0.5); % Lymphocytes 22.6 % (20.5-51.1); % Monocytes 7.7 % (1.7-9.3); % Neutrophils 65.2 % (42.2-75.2); Absolute Basophils 0.1 10^3/uL (0-0.2); Absolute Eosinophils 0.2 10^3/uL (0-0.7); Absolute Immature Granulocytes 0.1 10^3/uL (0-0.05); Absolute Lymphocytes 1.6 10^3/uL (1.2-3.4); Absolute Monocytes 0.5 10^3/uL (0.1-0.6); Absolute Neutrophils 4.5 10^3/uL (1.4-6.5); Hematocrit 36.1 % (39.0-52.0); Hemoglobin 12.8 g/dL (13.0-18.0); Mean Corp Hgb Conc. 35.5 g/dL (33.0-37.0); Mean Corpuscular Hgb 31.5 pg (27.0-31.0); Mean Corpuscular Volume 88.9 fL (80.0-94.0); Mean Platelet Volume 8.7 fL (7.4-10.4); Nucleated Red Blood Cells % 0 % (-); Platelet Count 370 10^3/uL (130-400); Red Blood Cell Count 4.06 10^6/uL (4.70-6.10); Red Cell Dist. Width 12.2 % (11.5-14.5); White Blood Cell Count 6.9 10^3/uL (4.8-10.8)
--- NOTE | 2023-10-22 10:05 | W.PN.HOSP.TC ---
Today's Communication/Plan
-
Wound care per surgery
IV abx
await culture data
ID recs
Assessment / Plan
Assessment / Plan
# Right lower extremity cellulitis with abscess secondary to blunt force trauma
-Venous ultrasound from 6 days ago shows 4.7 cm hematoma/seroma likely abscess
-CT of right lower extremity noted.
-Blood culture in negative so far
-Vancomycin continued. Infectious disease consulted and cefepime Flagyl added.
-General Surgery consulted s/p I&D with drainage at bedside on 10/20
-Wound culture in lab
Essential hypertension
-Continue amlodipine/benazepril
-BP 137/81
History of CVA
-Continue aspirin
History of prolactinoma
-Continue cabergoline
History of vertigo
Hyperlipidemia
-Continue statin
Full code
DVT prophylaxis-heparin
Regular diet
Anticipated Discharge: 24 - 48 hours
Subjective/Interval History
-
Date of Service: October 22, 2023
states improvement in erythema
Objective Data
-
Labs:
Laboratory Results
10/22/23
08:55
WBC 6.9
Hgb 12.8 L
Hct 36.1 L
Plt Count 370
Sodium Pending
Potassium Pending
Chloride Pending
Carbon Dioxide Pending
BUN Pending
Creatinine Pending
Glucose Pending
Calcium Pending
Vital Signs:
Vital Signs
Temp Pulse Resp BP Pulse Ox
97.6 F 58 16 137/81 96
10/22/23 07:35 10/22/23 07:35 10/22/23 07:35 10/22/23 07:35 10/22/23 07:35
I&O
10/21/23 10/22/2310/22/24
06:59 06:59 06:59
Intake Total 1619
Balance 1619
Physical Exam
-
General: Well Developed and No Apparent Distress
HEENT: Normocephalic, Atraumatic and Moist Mucous Membranes
Respiratory: Clear to Auscultation
Cardiac: Regular Rhythm and S1/S2; Negative Murmur, Rub or Gallop
GI: Soft, Nontender, Nondistended and Normal Bowel Sounds; Negative Organomegaly
Rectal: Deferred by Provider
Musculoskeletal: No Clubbing, No Cyanosis and No Edema
Skin: Rash (Right lower extremity erythematous with ulcerated lesion)
Neuro: Awake, AO x 3, No Motor Deficits and Nonfocal/Grossly Intact
Psych: Calm
--- NOTE | 2023-10-22 10:27 | W.PN.GS2 ---
Today's Communication / Plan
-
Local wound care
Assessment / Plan
-
77M PPD1 s/p bedside I&D of soft tissue abscess of RLE
Improving
No need for further surgical debridement
Cont saline w2d dressing with daily changes
Pls call with ?s
Subjective Data
-
Date of Service: October 22, 2023
AFVSS, ambulating, voiding, pain controlled, delroy PO
Objective Data
-
Intake and Output
10/21/23 10/22/23 10/23/23
06:59 06:59 06:59
Intake Total 1620 / 1620
Balance 1620 / 1620
Intake:
Oral fluids 1620 / 1620
Other:
Number of approximated SMALL 5
amounts of urine
Number of approximated MODERATE 3
amounts of urine
Vital Signs
Temp Pulse Resp BP Pulse Ox
97.6 F 58 16 137/81 96
10/22/23 07:35 10/22/23 07:35 10/22/23 07:35 10/22/23 07:35 10/22/23 07:35
Lab Results
10/22/23 08:55
Calcium 8.7 mg/dl (8.4-10.2) 10/21/23 06:24
Total Bilirubin 0.9 mg/dl (0.2-1.3) 10/21/23 06:24
AST 25 U/L (17-59) 10/21/23 06:24
ALT 22 U/L (0-50) 10/21/23 06:24
Alkaline Phosphatase 77 U/L (38-126) 10/21/23 06:24
Total Protein 6.0 g/dl (6.3-8.2) L 10/21/23 06:24
Albumin 3.3 g/dl (3.5-5.0) L 10/21/23 06:24
Physical Exam
-
Gen: NAD
RLE: erythema retreating from drawn border, edema decreased, no purulence, bleeding or fluctuance
--- NOTE | 2023-10-22 10:47 | CM ---
Reviewed the chart notes and spoke with the patient at the bedside. CM continues to be available to patient/family and is monitoring medical plan for needs at discharge.
Plan: Discharge plans will depend on the patient's progress. May benefit from VN for wound care.
[2023-10-22 10:57] LABS: Blood Urea Nitrogen 19 mg/dl (9-20); Carbon Dioxide 26 mmol/L (22-30); Chloride 103 mmol/L (98-107); Estimated Creatinine Clearance 61 ml/min; Glucose 121 mg/dl (70-99); Potassium 4.2 mmol/L (3.5-5.1); Sodium 138 mmol/L (135-145); eGFR > 60.00
--- NOTE | 2023-10-22 12:41 | W.PN.ID1 ---
Date of Service
Date of Service: October 22, 2023
Today's Communication
DC Vanco. Continue cefepime/metronidazole.
Assessment / Plan
# RLE large abscess, cellulitis due to blunt trauma from a piece of tree branch
- Appreciate surgery. s/p abscess I+D 10/21/23.
Abscess cx neg to date.
- Continue IV cefepime, po metronidazole.
- Discontinue Vancomycin.
- Elevate RLE.
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
Hypertension
Dyslipidemia
CVA
Prolactinoma
vertigo
Chief Complaint
-: Cellulitis
Subjective / Review of Systems
leg swelling better
Vital Signs / Physical Exam
Vital Signs
Vital Signs
Temp Pulse Resp BP Pulse Ox
97.6 F 58 16 137/81 96
10/22/23 07:35 10/22/23 07:35 10/22/23 07:35 10/22/23 07:35 10/22/23 07:35
Physical Exam
Constitutional: No Acute Distress
Pulmonary: Clear
Extremities: Edema (LLE 2+), Erythema (stable LLE) and Other (LLE dressing intact)
Objective Data
Lab Data
Lab Results
10/22/23 08:55
10/22/23 08:55
Estimated Creat Clear 61 ml/min 10/22/23 08:55
Lactic Acid Cancelled 10/20/23 15:00
Total Bilirubin 0.9 mg/dl (0.2-1.3) 10/21/23 06:24
AST 25 U/L (17-59) 10/21/23 06:24
ALT 22 U/L (0-50) 10/21/23 06:24
Alkaline Phosphatase 77 U/L (38-126) 10/21/23 06:24
Most recent labs reviewed.
Micro Results:
10/21/23 17:39 Wound Culture - Preliminary
Abscess No growth
Gram Stain - Preliminary
10/21/23 06:19 MRSA Screen - Final
Nose No Methicillin Resistant Staphylococcus aureus isolated.
10/20/23 14:58 Blood Culture - Preliminary
Blood/Venous No Growth in 24 hours- Final report to follow
10/20/23 CT a/p: There is extensive skin thickening and subcutaneous edema/stranding throughout the lower extremity with ill-defined fluid along the dorsal lateral aspect of the foot. Findings likely represent superficial infectious process. There is
a 3.2 x 2.0 x 3.9 cm more focal focus of fluid, possibly a phlegmonous collection/developing abscess within the medial soft tissues at the level of the lower calf.
[2023-10-22 15:41] VITALS: BP 118/74
[2023-10-22] MEDS: LOW STRENGTH ASPIRIN 81 MG PO (17:15)
[2023-10-22] MEDS: LIPITOR 40 MG PO (21:14)
[2023-10-22] MEDS: XALATAN OPHTHALMIC SOLUTION 1 DROP BOTH EYES (21:14)
[2023-10-22 23:27] VITALS: BP 121/72
[2023-10-23] MEDS: FLAGYL 500 MG PO ×3 (05:18→20:13)
[2023-10-23] MEDS: STERILE WATER FOR INJECTION 10 ML IV ×3 (05:54→22:20)
[2023-10-23] MEDS: MAXIPIME 1000 MG IV ×3 (05:54→22:19)
[2023-10-23 07:02] LABS: % Basophils 0.5 % (0-2); % Eosinophils 2.2 % (0-6); % Immature Granulocytes 1.2 % (0-0.5); % Lymphocytes 19.8 % (20.5-51.1); % Monocytes 9.4 % (1.7-9.3); % Neutrophils 66.9 % (42.2-75.2); Absolute Eosinophils 0.2 10^3/uL (0-0.7); Absolute Immature Granulocytes 0.1 10^3/uL (0-0.05); Absolute Lymphocytes 1.5 10^3/uL (1.2-3.4); Absolute Monocytes 0.7 10^3/uL (0.1-0.6); Absolute Neutrophils 4.9 10^3/uL (1.4-6.5); Hemoglobin 12.6 g/dL (13.0-18.0); Mean Corpuscular Hgb 31.4 pg (27.0-31.0); Mean Corpuscular Volume 89.8 fL (80.0-94.0); Mean Platelet Volume 8.8 fL (7.4-10.4); Nucleated Red Blood Cells % 0 % (-); Platelet Count 365 10^3/uL (130-400); Red Blood Cell Count 4.01 10^6/uL (4.70-6.10); Red Cell Dist. Width 12.3 % (11.5-14.5); White Blood Cell Count 7.4 10^3/uL (4.8-10.8)
[2023-10-23 07:30] VITALS: BP 138/83
[2023-10-23 07:41] LABS: Blood Urea Nitrogen 21 mg/dl (9-20); Calcium 8.9 mg/dl (8.4-10.2); Carbon Dioxide 24 mmol/L (22-30); Chloride 103 mmol/L (98-107); Estimated Creatinine Clearance 68 ml/min; Glucose 96 mg/dl (70-99); Potassium 4.5 mmol/L (3.5-5.1); Sodium 138 mmol/L (135-145); eGFR > 60.00
[2023-10-23] MEDS: HEPARIN 5000 UNITS SC ×2 (08:34→20:16)
[2023-10-23] MEDS: NON-FORMULARY ITEM 1 UNIT PO (08:35)
[2023-10-23] MEDS: THERAGRAN 1 TABLET PO (08:35)
--- NOTE | 2023-10-23 09:58 | W.PN.HOSP.TC ---
Today's Communication/Plan
-
ID recs
IV abx for now
Assessment / Plan
Assessment / Plan
# Right lower extremity cellulitis with abscess secondary to blunt force trauma
-Venous ultrasound from 6 days ago shows 4.7 cm hematoma/seroma likely abscess
-CT of right lower extremity noted.
-Blood culture in negative so far
-Vancomycin continued. Infectious disease consulted and cefepime Flagyl added.
-? switch to po abx.
-General Surgery consulted s/p I&D with drainage at bedside on 10/20
-Wound culture -no growth so far.
-Recommended Op wound care center f/u
Essential hypertension
-Continue amlodipine/benazepril
-BP 138/81
History of CVA
-Continue aspirin
History of prolactinoma
-Continue cabergoline
History of vertigo
Hyperlipidemia
-Continue statin
Full code
DVT prophylaxis-heparin
Regular diet
Anticipated Discharge: Within 24 hours
Subjective/Interval History
-
Date of Service: October 23, 2023
states improvement in erythema
Objective Data
-
Labs:
Laboratory Results
10/23/23
06:17
WBC 7.4
Hgb 12.6 L
Hct 36.0 L
Plt Count 365
Sodium 138
Potassium 4.5
Chloride 103
Carbon Dioxide 24
BUN 21 H
Creatinine 0.9
Glucose 96
Calcium 8.9
Vital Signs:
Vital Signs
Temp Pulse Resp BP Pulse Ox
98.1 F 65 16 138/83 93
10/23/23 07:30 10/23/23 07:30 10/23/23 07:30 10/23/23 07:30 10/23/23 07:30
I&O
10/22/23 10/23/23 10/24/23
06:59 06:59 06:59
Intake Total 1619
Balance 1619
Physical Exam
-
General: Well Developed and No Apparent Distress
HEENT: Normocephalic, Atraumatic and Moist Mucous Membranes
Respiratory: Clear to Auscultation
Cardiac: Regular Rhythm and S1/S2; Negative Murmur, Rub or Gallop
GI: Soft, Nontender, Nondistended and Normal Bowel Sounds; Negative Organomegaly
Rectal: Deferred by Provider
Musculoskeletal: No Clubbing, No Cyanosis and No Edema
Skin: Rash (Right lower extremity erythematous with ulcerated lesion)
Neuro: Awake, AO x 3, No Motor Deficits and Nonfocal/Grossly Intact
Psych: Calm
--- NOTE | 2023-10-23 12:01 | W.PN.ID1 ---
Date of Service
Date of Service: October 23, 2023
Today's Communication
- Tomorrow, anticipate transition to levofloxacin 750mg po qd plus metronidazole 500mg po tid through 11/06/23.
- Check QTc
Assessment / Plan
# RLE large abscess, cellulitis due to blunt trauma from a piece of tree branch
- Appreciate surgery. s/p abscess I+D 10/21/23.
Abscess cx remains neg to date (?atypical organisms)
- Continue IV cefepime, po metronidazole (d3)
- Tomorrow, anticipate transition to levofloxacin 750mg po qd plus metronidazole 500mg po tid through 11/06/23.
- Check QTc
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
Hypertension
Dyslipidemia
CVA
Prolactinoma
vertigo
Chief Complaint
-: Cellulitis
Subjective / Review of Systems
Feeling better.
Vital Signs / Physical Exam
Vital Signs
Vital Signs
Temp Pulse Resp BP Pulse Ox
98.1 F 65 16 138/83 93
10/23/23 07:30 10/23/23 07:30 10/23/23 07:30 10/23/23 07:30 10/23/23 10:29
Physical Exam
Constitutional: No Acute Distress
Pulmonary: Clear
Gastrointestinal: Soft, Non Tender and Non Distended
Extremities: Edema (LLE decreased edema) and Erythema (LLE decreased erythema)
Objective Data
Lab Data
Lab Results
10/23/23 06:17
10/23/23 06:17
Estimated Creat Clear 68 ml/min 10/23/23 06:17
Lactic Acid Cancelled 10/20/23 15:00
Total Bilirubin 0.9 mg/dl (0.2-1.3) 10/21/23 06:24
AST 25 U/L (17-59) 10/21/23 06:24
ALT 22 U/L (0-50) 10/21/23 06:24
Alkaline Phosphatase 77 U/L (38-126) 10/21/23 06:24
Most recent labs reviewed.
Micro Results:
10/21/23 17:39 Wound Culture - Preliminary
Abscess No growth
Gram Stain - Preliminary
10/20/23 14:58 Blood Culture - Preliminary
Blood/Venous No Growth in 48 hours- Final report to follow
10/21/23 06:19 MRSA Screen - Final
Nose No Methicillin Resistant Staphylococcus aureus isolated.
10/20/23 CT a/p: There is extensive skin thickening and subcutaneous edema/stranding throughout the lower extremity with ill-defined fluid along the dorsal lateral aspect of the foot. Findings likely represent superficial infectious process. There is
a 3.2 x 2.0 x 3.9 cm more focal focus of fluid, possibly a phlegmonous collection/developing abscess within the medial soft tissues at the level of the lower calf.
--- NOTE | 2023-10-23 12:48 | CM ---
Addendum entered by Lelo Mireles RN 10/23/23 15:45:
IMM reviewed and placed on the chart.
Original Note:
Reviewed the chart notes and spoke with the patient and his spouse at the bedside. Per notes, anticipate transitioning to levofloxacin 750mg po daily plus metronidazole 500mg po tid through 11/06/23. Wound care includes saline w2d dressing with
daily changes. Discussed with the patient potential need for VN, would need to be home bound. Patient feels that he and his spouse will be able to manage daily w2d dressings and he intends to follow-up with the wound care center. CM continues to
be available to patient/family and is monitoring medical plan for needs at discharge.
Plan: Discharge to home when medically stable.
[2023-10-23 15:20] VITALS: BP 120/71
[2023-10-23] MEDS: LOW STRENGTH ASPIRIN 81 MG PO (17:12)
[2023-10-23] MEDS: XALATAN OPHTHALMIC SOLUTION 1 DROP BOTH EYES (22:18)
[2023-10-23] MEDS: LIPITOR 40 MG PO (22:18)
[2023-10-23 23:06] VITALS: BP 140/74
[2023-10-24] MEDS: FLAGYL 500 MG PO ×2 (04:03→11:44)
[2023-10-24] MEDS: STERILE WATER FOR INJECTION 10 ML IV (05:58)
[2023-10-24] MEDS: MAXIPIME 1000 MG IV (05:58)
[2023-10-24 07:26] LABS: % Basophils 0.7 % (0-2); % Eosinophils 2.4 % (0-6); % Immature Granulocytes 0.7 % (0-0.5); % Lymphocytes 17.8 % (20.5-51.1); % Monocytes 9.8 % (1.7-9.3); % Neutrophils 68.6 % (42.2-75.2); Absolute Basophils 0.1 10^3/uL (0-0.2); Absolute Eosinophils 0.2 10^3/uL (0-0.7); Absolute Immature Granulocytes 0.1 10^3/uL (0-0.05); Absolute Lymphocytes 1.4 10^3/uL (1.2-3.4); Absolute Monocytes 0.8 10^3/uL (0.1-0.6); Absolute Neutrophils 5.3 10^3/uL (1.4-6.5); Hemoglobin 13.2 g/dL (13.0-18.0); Mean Corp Hgb Conc. 36.7 g/dL (33.0-37.0); Mean Platelet Volume 8.8 fL (7.4-10.4); Nucleated Red Blood Cells % 0 % (-); Platelet Count 320 10^3/uL (130-400); Red Cell Dist. Width 12.3 % (11.5-14.5); White Blood Cell Count 7.6 10^3/uL (4.8-10.8)
[2023-10-24 07:30] VITALS: BP 140/79
[2023-10-24 07:45] LABS: Blood Urea Nitrogen 24 mg/dl (9-20); Calcium 9.1 mg/dl (8.4-10.2); Carbon Dioxide 24 mmol/L (22-30); Chloride 105 mmol/L (98-107); Estimated Creatinine Clearance 76 ml/min; Glucose 96 mg/dl (70-99); Potassium 4.5 mmol/L (3.5-5.1); Sodium 136 mmol/L (135-145); eGFR > 60.00
[2023-10-24] MEDS: HEPARIN 5000 UNITS SC (08:15)
[2023-10-24] MEDS: THERAGRAN 1 TABLET PO (08:16)
[2023-10-24] MEDS: NON-FORMULARY ITEM 1 UNIT PO (08:17)
[2023-10-24] MEDS: NON-FORMULARY ITEM 0.5 MG PO (08:17)
--- NOTE | 2023-10-24 10:36 | W.PN.HOSP.TC ---
Today's Communication/Plan
-
po abx
OP f/u
Assessment / Plan
Assessment / Plan
# Right lower extremity cellulitis with abscess secondary to blunt force trauma
-Venous ultrasound from 6 days ago shows 4.7 cm hematoma/seroma likely abscess
-CT of right lower extremity noted.
-Blood culture in negative so far
-Vancomycin continued. Infectious disease consulted and cefepime Flagyl added.
- Switch to po abx. Levaquin/flagyl through 11/06/23. Qtc wn [id number]
-General Surgery consulted s/p I&D with drainage at bedside on 10/20
-Wound culture -no growth so far.
-Recommended Op wound care center f/u
Essential hypertension
-Continue amlodipine/benazepril
History of CVA
-Continue aspirin
History of prolactinoma
-Continue cabergoline
History of vertigo
Hyperlipidemia
-Continue statin
Full code
DVT prophylaxis-heparin
Regular diet
More than 30 minutes spent in discharge including
Final examination of the patient
Summarizing hospital stay
Instructions for continuing care to all relevant caregivers
Preparation of discharge records, prescriptions, and referral forms
Total time spent (in minutes): 53
Anticipated Discharge: Today
Subjective/Interval History
-
Date of Service: October 24, 2023
states significant improvement in RLE erythema
no pain
Objective Data
-
Labs:
Laboratory Results
10/24/23
06:55
WBC 7.6
Hgb 13.2
Hct 36.0 L
Plt Count 320
Sodium 136
Potassium 4.5
Chloride 105
Carbon Dioxide 24
BUN 24 H
Creatinine 0.8
Glucose 96
Calcium 9.1
Vital Signs:
Vital Signs
Temp Pulse Resp BP Pulse Ox
98.2 F 65 16 140/79 96
10/24/23 07:30 10/24/23 07:30 10/24/23 07:30 10/24/23 07:30 10/24/23 09:45
I&O
10/23/23 10/24/23 10/25/23
06:59 06:59 06:59
Intake Total 2019
Balance 2019
Physical Exam
-
General: Well Developed and No Apparent Distress
HEENT: Normocephalic, Atraumatic and Moist Mucous Membranes
Respiratory: Clear to Auscultation
Cardiac: Regular Rhythm and S1/S2; Negative Murmur, Rub or Gallop
GI: Soft, Nontender, Nondistended and Normal Bowel Sounds; Negative Organomegaly
Rectal: Deferred by Provider
Musculoskeletal: No Clubbing, No Cyanosis and No Edema
Skin: Rash (Right lower extremity erythematous with ulcerated lesion-significant improved. Swelling improved too)
Neuro: Awake, AO x 3, No Motor Deficits and Nonfocal/Grossly Intact
Psych: Calm
--- NOTE | 2023-10-24 11:01 | W.PN.ID1 ---
Date of Service
Date of Service: October 24, 2023
Today's Communication
DC home today.
Assessment / Plan
# RLE large abscess, cellulitis due to blunt trauma from a piece of tree branch
- Appreciate surgery. s/p abscess I+D 10/21/23.
Abscess cx remains neg to date (?atypical organisms)
- Transition IV cefepime, po metronidazole (d4) to levofloxacin 750mg po qd plus metronidazole 500mg po tid through 11/06/23.
Check QTc normal.
# Conditions [employer] FINISHED
Hypertension
Dyslipidemia
CVA
Prolactinoma
vertigo
Chief Complaint
-: Cellulitis
Vital Signs / Physical Exam
Vital Signs
Vital Signs
Temp Pulse Resp BP Pulse Ox
98.2 F 65 16 140/79 96
10/24/23 07:30 10/24/23 07:30 10/24/23 07:30 10/24/23 07:30 10/24/23 09:45
Physical Exam
Extremities: Edema (LLE edema resolving) and Erythema (LLE erythema decreased)
Wound: Other (LLE wound decreased induration, + dried blood)
Objective Data
Lab Data
Lab Results
10/24/23 06:55
10/24/23 06:55
Estimated Creat Clear 76 ml/min 10/24/23 06:55
Lactic Acid Cancelled 10/20/23 15:00
Total Bilirubin 0.9 mg/dl (0.2-1.3) 10/21/23 06:24
AST 25 U/L (17-59) 10/21/23 06:24
ALT 22 U/L (0-50) 10/21/23 06:24
Alkaline Phosphatase 77 U/L (38-126) 10/21/23 06:24
Most recent labs reviewed.
Micro Results:
10/20/23 14:58 Blood Culture - Preliminary
Blood/Venous No Growth in 72 hours- Final report to follow
10/21/23 17:39 Wound Culture - Preliminary
Abscess No growth
Gram Stain - Preliminary
10/21/23 06:19 MRSA Screen - Final
Nose No Methicillin Resistant Staphylococcus aureus isolated.
10/20/23 CT a/p: There is extensive skin thickening and subcutaneous edema/stranding throughout the lower extremity with ill-defined fluid along the dorsal lateral aspect of the foot. Findings likely represent superficial infectious process. There is
a 3.2 x 2.0 x 3.9 cm more focal focus of fluid, possibly a phlegmonous collection/developing abscess within the medial soft tissues at the level of the lower calf.
[2023-10-24] MEDS: LEVAQUIN 750 MG PO (12:37)
--- NOTE | 2023-10-24 12:49 | W.DCSUMMARY ---
Discharge Summary
Discharge Data
Date of Admission: 10/20/23
Date of Discharge: 10/24/23
-
Pending Results: No
Hospital Course
77 yo M with past medical history of hypertension history of CVA, prolactinoma, vertigo and hyperlipidemia is presented with right lower extremity erythema. Per patient he was doing yard work and a tree branch falling on his leg. Subsequently
after developed severe redness and swelling. Received antibiotics as outpatient without significant improved. Patient was on p.o., IV antibiotics. Patient was eval by general surgery and infectious disease. Patient underwent bedside drainage and
wound culture was found to be no growth. There was suspicion of atypical infection. Patient was on IV vancomycin cefepime and Flagyl. Eventually vancomycin was discontinued and patient was transitioned to p.o. Levaquin and Flagyl. Patient with
significant improvement in erythema and swelling. Recommended patient to follow-up outpatient with wound care center.
Discharge Plan
-
Patient Disposition: Home (Routine Discharge)
Discharge Diagnosis/Procedures: Right lower extremity cellulitis with abscess secondary to blunt force trauma status post incision and drainage
Condition: Fair
Diet: As tolerated
Activity: As tolerated
Driving Restrictions: As prior to admission
Wound Care: Cont w2d saline dressing with daily change
Referrals:
Jareth Clark PA [Family Provider] - in less than 1 week
[facility] [[facility] - in less than 1 week
Prescriptions:
New
metronidazole 500 mg Tablet
500 mg PO Q8H 13 Days Qty: 39 0RF
levofloxacin 750 mg tablet
750 mg PO DAILY Qty: 13 0RF
Continued
cabergoline 0.5 MG tablet
1 mg PO TU
latanoprost 0.005 % Drops
1 drp BOTH EYES HS
atorvastatin 40 mg Tablet
40 mg PO HS
therapeutic multivitamin Tablet
1 tab PO DAILY
triamcinolone acetonide 0.1 % Cream
1 applic TOPICAL BIDPRN PRN (Reason: eczema)
cabergoline 0.5 mg Tablet
1.5 mg PO FR
aspirin 81 mg Tablet,Chewable
81 mg PO QPM
amlodipine-benazepril 10-40 mg Capsule
1 cap PO DAILY
Discontinued
cephalexin 500 mg Capsule
500 mg PO Q6H
Patient Comments:
10/20/23: filled 10/13/23 for 10 days
Discharge Orders:
Discharge Patient (As Directed); Ordered 10/24/23
Ordered By: Navi Garza
Discharge Date and Time
Print Language: COMORAN
== END 2023-10-24 13:54 | disposition home or self-care (01) | DRG 603 ==
LOC: 2 NORTH 19:50
PROVIDERS: Physician Assistant; ADMITTING PHYSICIAN Hospitalist; ATTENDING PHYSICIAN Hospitalist; CONSULT PHYSICIAN Internal Medicine Infectious Disease; CONSULT PHYSICIAN Surgery; EMERGENCY PHYSICIAN Emergency Medicine; FAMILY PHYSICIAN Physician Assistant
PROC: 0Y9H0ZX Drainage of Right Lower Leg, Open Approach, Diagnostic (ICD-10-PCS; 2023-10-21)
DX: L02.415 Cutaneous abscess of right lower limb (principal); L03.115 Cellulitis of right lower limb; I10 Essential (primary) hypertension; E78.00 Pure hypercholesterolemia, unspecified
CPT/HCPCS: 73701; 80048; 80053; 83605; 85025; 87040; 87070; 87205; 93005; 96365; 96367; 99285; Q9967

== ENCOUNTER → 2023-10-30 08:38 | Outpatient (REF) | payer MEDICARE, OTHER, SELFPAY | LOC: WOUND 08:38 | PROVIDERS: ATTENDING PHYSICIAN Surgery; FAMILY PHYSICIAN Physician Assistant Medical | DX: L97.812 Non-pressure chronic ulcer of other part of right lower leg with fat layer exposed (principal); L02.415 Cutaneous abscess of right lower limb; I10 Essential (primary) hypertension; E78.2 Mixed hyperlipidemia; Z86.73 Personal history of transient ischemic attack (TIA), and cerebral infarction without residual deficits | CPT/HCPCS: 11042; 99203 ==

== ENCOUNTER → 2023-11-06 08:46 | Outpatient (REF) | payer MEDICARE, OTHER, SELFPAY | LOC: WOUND 08:46 | PROVIDERS: ATTENDING PHYSICIAN Surgery; FAMILY PHYSICIAN Physician Assistant Medical | DX: L97.812 Non-pressure chronic ulcer of other part of right lower leg with fat layer exposed (principal); L02.415 Cutaneous abscess of right lower limb; I10 Essential (primary) hypertension; E78.2 Mixed hyperlipidemia; Z86.73 Personal history of transient ischemic attack (TIA), and cerebral infarction without residual deficits | CPT/HCPCS: 11042 ==

== ENCOUNTER → 2023-11-08 07:33 | Outpatient (REF) | payer MEDICARE, OTHER, SELFPAY ==
[2023-11-08 08:57] LABS: % Basophils 1.2 % (0-2); % Eosinophils 3.8 % (0-6); % Immature Granulocytes 0.6 % (0-0.5); % Lymphocytes 24.6 % (20.5-51.1); % Monocytes 14.4 % (1.7-9.3); % Neutrophils 55.4 % (42.2-75.2); Absolute Basophils 0.1 10^3/uL (0-0.2); Absolute Eosinophils 0.2 10^3/uL (0-0.7); Absolute Lymphocytes 1.2 10^3/uL (1.2-3.4); Absolute Monocytes 0.7 10^3/uL (0.1-0.6); Absolute Neutrophils 2.8 10^3/uL (1.4-6.5); Hematocrit 37.4 % (39.0-52.0); Hemoglobin 12.9 g/dL (13.0-18.0); Mean Corp Hgb Conc. 34.5 g/dL (33.0-37.0); Mean Corpuscular Hgb 31.1 pg (27.0-31.0); Mean Corpuscular Volume 90.1 fL (80.0-94.0); Mean Platelet Volume 9.4 fL (7.4-10.4); Nucleated Red Blood Cells % 0 % (-); Platelet Count 303 10^3/uL (130-400); Red Blood Cell Count 4.15 10^6/uL (4.70-6.10); Red Cell Dist. Width 13.9 % (11.5-14.5)
== END ==
LOC: REG 07:33
PROVIDERS: ATTENDING PHYSICIAN Internal Medicine Hematology & Oncology; FAMILY PHYSICIAN Family Medicine
DX: D72.810 Lymphocytopenia (principal)
CPT/HCPCS: 36415; 85025

== ENCOUNTER → 2023-11-20 09:22 | Outpatient (REF) | payer MEDICARE, OTHER, SELFPAY | LOC: WOUND 09:22 | PROVIDERS: ATTENDING PHYSICIAN Surgery; FAMILY PHYSICIAN Physician Assistant Medical | DX: L97.812 Non-pressure chronic ulcer of other part of right lower leg with fat layer exposed (principal); L02.415 Cutaneous abscess of right lower limb; I10 Essential (primary) hypertension; E78.2 Mixed hyperlipidemia; Z86.73 Personal history of transient ischemic attack (TIA), and cerebral infarction without residual deficits | CPT/HCPCS: 99212 ==

== ENCOUNTER → 2023-12-01 07:34 | Outpatient (REF) | payer MEDICARE, OTHER, SELFPAY ==
[2023-12-01 09:27] LABS: ALT (SGPT) 25 U/L (0-50); AST (SGOT) 28 U/L (17-59); Albumin 2.7 g/dl (3.5-5.0); Alkaline Phosphatase 60 U/L (38-126); Blood Urea Nitrogen 17 mg/dl (9-20); Calcium 9.4 mg/dl (8.4-10.2); Carbon Dioxide 25 mmol/L (22-30); Chloride 104 mmol/L (98-107); Glucose 93 mg/dl (70-99); Potassium 4.1 mmol/L (3.5-5.1); Sodium 140 mmol/L (135-145); Total Bilirubin 0.6 mg/dl (0.2-1.3); Total Protein 6.6 g/dl (6.3-8.2); eGFR > 60.00
[2023-12-01 19:25] LABS: Prolactin 8.2 ng/ml (3.7-17.9)
== END ==
LOC: REG 07:34
PROVIDERS: ATTENDING PHYSICIAN Internal Medicine Endocrinology, Diabetes & Metabolism; FAMILY PHYSICIAN Physician Assistant Medical
DX: E22.1 Hyperprolactinemia (principal)
CPT/HCPCS: 36415; 80053; 84146

== ENCOUNTER → 2024-04-02 08:19 | Outpatient (REF) | payer MEDICARE, OTHER, SELFPAY ==
[2024-04-02 10:12] LABS: ALT (SGPT) 21 U/L (0-50); AST (SGOT) 27 U/L (17-59); Albumin 3.7 g/dl (3.5-5.0); Alkaline Phosphatase 72 U/L (38-126); Blood Urea Nitrogen 21 mg/dl (9-20); Carbon Dioxide 29 mmol/L (22-30); Chloride 104 mmol/L (98-107); Glucose 87 mg/dl (70-99); Potassium 4.3 mmol/L (3.5-5.1); Sodium 138 mmol/L (135-145); Total Bilirubin 0.9 mg/dl (0.2-1.3); Total Protein 6.2 g/dl (6.3-8.2); eGFR > 60.00
[2024-04-02 10:58] LABS: Free T4 0.78 ng/dl (0.78-2.19)
== END ==
LOC: REG 08:19
PROVIDERS: ATTENDING PHYSICIAN Internal Medicine Endocrinology, Diabetes & Metabolism; FAMILY PHYSICIAN Physician Assistant Medical
DX: E22.1 Hyperprolactinemia (principal); D35.2 Benign neoplasm of pituitary gland
CPT/HCPCS: 36415; 80053; 84146; 84439; 84443

== ENCOUNTER → 2024-09-21 19:56 | Outpatient (REF) | payer MEDICARE, OTHER, SELFPAY | LOC: MRI 3T 19:56 | PROVIDERS: ATTENDING PHYSICIAN Internal Medicine Endocrinology, Diabetes & Metabolism | DX: E22.1 Hyperprolactinemia (principal); D35.2 Benign neoplasm of pituitary gland | CPT/HCPCS: 70553; A9575 ==

== ENCOUNTER → 2024-11-04 06:54 | Outpatient (REF) | payer MEDICARE, OTHER, SELFPAY ==
[2024-11-04 08:07] LABS: Free T3 3.28 pg/ml (2.77-5.27)
[2024-11-04 08:21] LABS: Cortisol, Random 9.3 ug/dl; TSH 2.74 uIU/ml (0.47-4.68)
[2024-11-06 06:42] LABS: IGF-1 Z Score Calculation 0.9
== END ==
LOC: REG 06:54
PROVIDERS: ATTENDING PHYSICIAN Internal Medicine Endocrinology, Diabetes & Metabolism; FAMILY PHYSICIAN Physician Assistant Medical
DX: D35.2 Benign neoplasm of pituitary gland (principal)
CPT/HCPCS: 36415; 82533; 84146; 84270; 84305; 84402; 84403; 84439; 84443; 84481

== ENCOUNTER → 2025-01-04 07:14 | Outpatient (REF) | payer MEDICARE, OTHER, SELFPAY ==
[2025-01-04 08:07] LABS: Hematocrit 42.7 % (39.0-52.0); Hemoglobin 14.8 g/dL (13.0-18.0); Mean Corp Hgb Conc. 34.7 g/dL (33.0-37.0); Mean Corpuscular Volume 92.0 fL (80.0-94.0); Nucleated Red Blood Cells % 0 % (-); Platelet Count 249 10^3/uL (130-400); Red Cell Dist. Width 12.4 % (11.5-14.5)
[2025-01-04 08:38] LABS: ALT (SGPT) 21 U/L (0-50); AST (SGOT) 26 U/L (17-59); Albumin 4.2 g/dl (3.5-5.0); Alkaline Phosphatase 65 U/L (38-126); Blood Urea Nitrogen 15 mg/dl (9-20); Calcium 9.2 mg/dl (8.4-10.2); Carbon Dioxide 29 mmol/L (22-30); Chloride 105 mmol/L (98-107); Glucose 85 mg/dl (70-99); HDL Cholesterol 63 mg/dl; LDL Cholesterol, Calculated 52 mg/dl; Potassium 4.2 mmol/L (3.5-5.1); Sodium 138 mmol/L (135-145); Total Protein 6.6 g/dl (6.3-8.2); Very Low Density Lipoprotein 11 mg/dl (0-30); eGFR > 60.00
[2025-01-04 09:06] LABS: TSH 2.04 uIU/ml (0.47-4.68)
== END ==
LOC: REG 07:14
PROVIDERS: ATTENDING PHYSICIAN Physician Assistant Medical
DX: E78.2 Mixed hyperlipidemia (principal); I10 Essential (primary) hypertension; D64.9 Anemia, unspecified; D35.2 Benign neoplasm of pituitary gland; Z86.73 Personal history of transient ischemic attack (TIA), and cerebral infarction without residual deficits; B35.3 Tinea pedis
CPT/HCPCS: 36415; 80053; 80061; 84443; 85025